=== PATIENT | male | born 1985 | race Caucasian/White ===

== ENCOUNTER 2023-04-14 15:14 | Outpatient (AMB) | payer BC, SELFPAY ==
--- NOTE | 2023-04-14 15:59 | MHC.OFFWIV ---
Intake Vital Signs 04/14/23 16:04 Weight 249 lb 2 oz BP 132/80 Blood Pressure Location Rt brachial Position Sitting Pulse 67 Pulse Source Pulse Oximeter Temp 98.0 F Temp Source Temporal Artery Scan Pulse Oximetry (%) 97 Intake Visit Reasons: EP diarrhea 2 weeks Intake Note: pt is here for c/o diarrhea for 2x weeks Patient Tobacco Use Status: Never used Tobacco Allergies No Known Allergies Allergy (Verified 04/14/23 15:59) Do you need a note to return to daycare/school/sports/work: Yes HPI EP diarrhea 2 weeks HPI Details 37-year-old male presents to the office for a sick visit. Patient is reporting that he is having loose stool for the past month. Initially it started off with an upper respiratory tract infection and diarrhea. After he took a round of Zithromax, he has upper respiratory tract infection symptoms resolved. The diarrhea was persisting. Slowly, it became loose consistency but less frequency. Now he has 1-2 bowel movements a day which are loose in consistency. No cramping. He is able to function and do all activities of daily living. [facility] Social History Patient Tobacco Use Status: Never used Tobacco Physical Exam Vital Signs: Last Vital Signs Temp 98.0 F 04/14/23 16:04 Pulse 67 04/14/23 16:04 BP 132/80 04/14/23 16:04 Pulse Ox 97 04/14/23 16:04 Const General: cooperative and healthy appearing Nutritional Appearance: well nourished Orientation/consciousness: patient oriented x3 Limitations: no limitations HEENT Head: Yes normal to inspection Eyes General: appearance normal, both eyes and all related structures Neck Neck: Yes normal visual inspection Chest Chest palpation & inspection: normal palpation of entire chest wall Resp Effort & Inspection: normal respiratory effort Neuro General: patient oriented x3 Assessment & Plan Assessment & Plan (1) Diarrhea: Code(s): R19.7 - Diarrhea, unspecified Plan: Limiting illness. Blood work ordered to rule out hepatitis. Coding Level of Care Code Est Pt Level 3 (57307) Diagnoses Diarrhea R19.7
[2023-04-14 16:04] VITALS: BP 132/80; PULSE 67; TEMP 36.7; O2SAT 97
== END 2023-04-14 16:46 | disposition home or self-care (01) ==
PROVIDERS: PCP Internal Medicine; Visit Provider Internal Medicine
DX: R19.7 Diarrhea, unspecified (principal)
CPT/HCPCS: 99213

== ENCOUNTER 2023-04-15 09:14 | Outpatient (REF) | payer BC, SELFPAY ==
[2023-04-15 12:04] LABS: Hematocrit 44.5 % (42.0-52.0); Hemoglobin 15.2 g/dl (14.0-18.0); Mean Corpuscular HGB Conc 34.2 g/dl (31.0-36.0); Mean Corpuscular Hemoglobin 30.3 pg (27.0-33.0); Mean Corpuscular Volume 88.8 fL (80.0-98.0); Mean Platelet Volume 10.2 fL (9.4-12.4); Platelet Count 289 X10*3/uL (160-400); Red Blood Count 5.01 X10*6/uL (4.60-5.80); Red Cell Distribution Width 12.3 % (11.0-16.0); White Blood Count 6.9 X10*3/uL (4.8-10.8)
[2023-04-15 12:16] LABS: Alanine Aminotransferase 85 U/L (0-40); Albumin Level 4.3 g/dL (3.5-5.0); Alkaline Phosphatase 99 U/L (39-117); Aspartate Amino Transferase 44 U/L (5-37); Bilirubin Direct 0.4 mg/dL (0.0-0.5); Bilirubin Total 1.2 mg/dL (0.0-1.0); Total Protein 7.8 g/dL (6.5-8.0)
[2023-04-15 12:53] LABS: Erythrocyte Sedimentation Rate 6 MM/HR (0-15)
== END 2023-04-15 09:15 | disposition home or self-care (01) ==
LOC: HO.HMGCLDS 09:14
PROVIDERS: PCP Internal Medicine; Visit Provider Internal Medicine
DX: R19.7 Diarrhea, unspecified (principal)
CPT/HCPCS: 36415; 80076; 85027; 85652

== ENCOUNTER 2023-04-22 11:46 | Outpatient (REF) | payer BC, SELFPAY | END 2023-04-22 11:47 | disposition home or self-care (01) | LOC: HO.HMGCLNP 11:46 | PROVIDERS: Visit Provider Internal Medicine | DX: R19.7 Diarrhea, unspecified (principal) | CPT/HCPCS: 87329 ==

== ENCOUNTER 2023-04-23 11:32 | Outpatient (REF) | payer BC, SELFPAY ==
[2023-04-23 12:53] LABS: Estimated Average Glucose 114 mg/dL; Hemoglobin A1c % 5.6 % (<6.0)
[2023-04-23 13:21] LABS: Cholesterol 192 mg/dL (<200); HDL Cholesterol 36 mg/dL (>40); LDL Cholesterol Calculated 119 mg/dL (<100); Triglycerides 188 mg/dL (<150)
[2023-04-23 13:38] LABS: Ferritin 717 ng/mL (20-250); Thyroid Stimulating Hormone 1.72 uIU/mL (0.32-4.0)
[2023-04-23 14:34] LABS: Creatinine Urine 219.57 mg/dL; Protein/Creatinine Ratio, Ur 0.05 (<0.2); Total Protein Urine Random 11 mg/dL (<12)
[2023-04-24 03:33] LABS: HBS Num1 124.71 mIU/mL (0-7.99); HBc Num1 0.14 S/CO (0.00-0.79); HBsAGNum1 0.45 S/CO (0.00-0.99); Hepatitis A Antibody IgM 0.17 Index (0-0.79); Hepatitis B Core Antibody Nonreactive (Nonreactive); Hepatitis B Surface Antigen Negative (Negative); ~HepC Num1 0.18 S/CO (0.00-0.79); ~Hepatitis A Antibody IgM Nonreactive (Nonreactive); ~Hepatitis B Surface Antibody REACTIVE (Nonreactive); ~Hepatitis C Antibody Nonreactive (Nonreactive)
[2023-04-27 14:43] LABS: Anti Nuclear Antibody Screen NEGATIVE (NEGATIVE)
[2023-04-29 13:38] LABS: Smooth Muscle Antibody <20 U (<20)
== END 2023-04-23 11:33 | disposition home or self-care (01) ==
LOC: HO.LAB 11:32
PROVIDERS: PCP Internal Medicine; Visit Provider Internal Medicine
DX: E78.1 Pure hyperglyceridemia (principal); I10 Essential (primary) hypertension; R19.7 Diarrhea, unspecified; R63.5 Abnormal weight gain; R74.01 Elevation of levels of liver transaminase levels
CPT/HCPCS: 36415; 80061; 82570; 82728; 83036; 84156; 84443; 86015; 86038; 86704; 86706; 86709; 86803; 87340

== ENCOUNTER 2023-05-26 12:10 | Outpatient (REF) | payer BC, SELFPAY ==
[2023-05-26 13:17] LABS: Alanine Aminotransferase 171 U/L (0-40); Albumin Level 4.5 g/dL (3.5-5.0); Alkaline Phosphatase 107 U/L (39-117); Anion Gap 15 (12-20); Aspartate Amino Transferase 71 U/L (5-37); Bilirubin Total 1.1 mg/dL (0.0-1.0); Blood Urea Nitrogen 11 mg/dL (9-16); Calcium 9.7 mg/dL (8.4-10.2); Carbon Dioxide 24 mmol/L (22-29); Chloride 107 mmol/L (96-108); Estimated Glomerular Filt Rate > 60; Glucose Random 97 mg/dL (60-115); Sodium 142 mmol/L (135-145); Total Protein 7.8 g/dL (6.5-8.0)
== END 2023-05-26 12:11 | disposition home or self-care (01) ==
LOC: HO.LAB 12:10
PROVIDERS: PCP Internal Medicine; Visit Provider Internal Medicine
DX: Z00.01 Encounter for general adult medical examination with abnormal findings (principal); E78.2 Mixed hyperlipidemia; I10 Essential (primary) hypertension; R74.01 Elevation of levels of liver transaminase levels
CPT/HCPCS: 36415; 80053; 81256